=== PATIENT | female | born 1975 | race Caucasian/White ===

== ENCOUNTER 2022-08-03 10:07 | Emergency (ER) | payer OTHER ==
[~2022-08-03] VITALS: Ht 160 cm; Wt 89.4 kg
[~2022-08-03 10:07] MED LIST: ALBU90OI INH; CETI5 PO; Colace100 MG PO; HYOS0.375T PO; Loperamide2 MG PO; ONDA8 PO; OXYACE5T PO; PROM25 PO; SERT100 PO; SIME80CH PO
[2022-08-03] MEDS ORDERED: WARF5 PO (10:44)
== END 2022-08-03 11:10 | disposition home or self-care (01) ==
LOC: ER 10:07
DX: I82.402 Acute embolism and thrombosis of unspecified deep veins of left lower extremity (principal); Z88.5 Allergy status to narcotic agent; Z88.6 Allergy status to analgesic agent
CPT/HCPCS: 99282

== ENCOUNTER → 2023-07-24 | Outpatient (CLI) | payer OTHER ==
[~2023-07-24] MED LIST changes: +WARF5 PO
== END | disposition home or self-care (01) ==
LOC: LAB 15:14 → LAB SHORT 15:14
DX: R82.90 Unspecified abnormal findings in urine (principal)
CPT/HCPCS: 87086